=== PATIENT | female | born 1940 | race Caucasian/White ===

== ENCOUNTER 2021-07-21 09:37 | Outpatient (CLI) | payer MEDICARE, BC ==
[~2021-07-21] VITALS: Ht 92 cm; Wt 85.0 kg
[2021-07-21 09:30] VITALS: BP 131/62; PULSE 86; TEMP 97.7
--- NOTE | 2021-07-21 10:15 | NUR ---
pt rests in bed, procedure completed, pt has luiza wrap over right upper arm with double lumen PICC. Son in room for short time. 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 Polly LY called report to facility and folder of [facility] care instructions sent with pt and EMS. pt up on BSC with 2 assist, then to cart and was transferred back with EMS
[2021-07-21] MEDS ORDERED: IPRATROPIUM BROM3 M1 IH (12:12)
[2021-07-21] MEDS ORDERED: TYLENOL 325MG325 MG PO (12:12)
[2021-07-21] MEDS ORDERED: ELIQUIS 5MG PO (12:13)
[2021-07-21] MEDS ORDERED: LIPITOR20 MG PO (12:13)
[2021-07-21] MEDS ORDERED: BENTYL 10MG10 MG/CAP PO (12:14)
[2021-07-21] MEDS ORDERED: KLONOPIN 0.5MG0.5 MG PO (12:14)
[2021-07-21] MEDS ORDERED: MUCINEX1200 MG PO (12:14)
[2021-07-21] MEDS ORDERED: TOPROL XL 50MG50 MG PO (12:15)
[2021-07-21] MEDS ORDERED: LEVAQUIN 5500 MG/101 IV (12:15)
[2021-07-21] MEDS ORDERED: NYAMYC100000 U/G TP (12:16)
[2021-07-21] MEDS ORDERED: VANCO 1.51.5 GM/250 IV (12:17)
== END 2021-07-21 10:30 ==
LOC: EUO 09:37 → SDCO 16:00 → EDSTATUS 16:02
DX: Z45.2 Encounter for adjustment and management of vascular access device (principal); J90 Pleural effusion, not elsewhere classified; J39.8 Other specified diseases of upper respiratory tract; J18.1 Lobar pneumonia, unspecified organism
CPT/HCPCS: C1751; C1892